=== PATIENT | male | born 1995 | race Caucasian/White ===

== ENCOUNTER 2017-04-10 13:45 | Emergency (ER) | payer OTHER ==
[~2017-04-10] VITALS: Ht 175.3 cm; Wt 74.5 kg
[2017-04-10 13:57] VITALS: TEMP 36.8; Ht 175.3 cm; Wt 74.5 kg
[2017-04-10] MEDS ORDERED: ACETAMINOPHEN 500 MG TAB PO STA (14:48)
[2017-04-10] MEDS ORDERED: SODIUM CHLORIDE 0.9% 1000ML 1,000 ML IV STA ×2 (14:48→16:24)
[2017-04-10] MEDS ORDERED: IBUPROFEN 200 MG TAB PO STA (14:48)
[2017-04-10] MEDS ORDERED: CYCLOBENZAPRINE HCL 5 MG TAB PO STA (14:48)
--- NOTE | 2017-04-10 14:48 | EMERGENCY ROOM VISIT NOTE ---
History Report prepared by Benny: Autumn Gastelum Under the Supervision of: Dr. Geoffrey Spain M.D. First contact with patient: 14:14 Chief Complaint: ABDOMINAL PAIN Stated Complaint: SHARP PAINS IN LEFT SIDE OF STOMACH History of Present Illness The patient is a 21 year old white male with no past medical history who presents to the ED with a cc of constant sharp left sided abdominal pain beginning 2 days ago. The patient states that he has been having sharp abdominal pain that is worse with movement and deep breathing. He notes that he went to urgent care last night and they did a urine test that was normal. Negative urinary symptoms, cough, fever, chills, nausea, vomiting, recent travel , recent antibiotics, recent trauma, leg swelling, no groin pain. The patient notes that his last bowel movement was yesterday and was normal. He reports that he was on Prednisone for his ear but has been off of it for 5 days. Source of History: patient Onset: 2 days ago Position: abdomen (left) Quality: sharp Timing: constant Modifying Factors (Worsening): breathing, movement Associated Symptoms: No fevers, No chills, No cough, No nausea, No vomiting , No urinary symptoms Note: Negative leg swelling, no groin pain. Review of Systems See HPI for pertinent positives and negatives. A total of ten systems were reviewed and were otherwise negative. Past Medical & Surgical Medical Problems: (1) No Known Active Medical Problems Family History No pertinent family history stated. Social History Smoking Status: Never Smoker Marital Status: single Housing Status: lives with roommate Occupation Status: [employer] student Current/Historical Medications Scheduled PRN Tramadol (Ultram), 50 MG PO Q8H PRN for Pain Allergies Coded Allergies: No Known Allergies (Unverified , 04/10/17) Physical Exam Vital Signs Date Time Temp Pulse Resp B/P (MAP) Pulse Ox O2 Delivery O2 Flow Rate FiO2 04/10/17 18:52 70 18 134/70 99 04/10/17 17:09 74 16 127/59 95 Room Air 04/10/17 15:57 73 16 128/60 100 Room Air 04/10/17 15:14 69 04/10/17 13:57 36.8 84 16 113/66 97 Room Air Physical Exam GENERAL: Awake, alert, well-appearing, NAD HENT: Normocephalic, atraumatic. EYES: Normal conjunctiva. Sclera non-icteric. NECK: Supple. No nuchal rigidity. FROM. RESPIRATORY: CTAB, no rhonchi, wheezing, crackles CARDIAC: RRR, no MRG ABDOMEN: Soft, Mild TTP to LUQ and left upper rib margin, no crepitus, BS+ MSK: No chest wall TTP, no LE edema, no CVA tenderness NEURO: GCS 15, CN 2-12 intact, moves all 4s on command SKIN: No rash or jaundice noted. Medical Decision & Procedures ER Provider Diagnostic Interpretation: X-ray: Per my interpretation, radiologist review. CHEST ONE VIEW PORTABLE FINDINGS: Lung volumes are normal. No pneumothorax or pleural effusion is present. Pulmonary vascularity is normal. Cardiomediastinal silhouette is normal. There is no consolidation to suggest pneumonia. There is no lucency under the hemidiaphragms to suggest pneumoperitoneum on this study. IMPRESSION: No acute cardiopulmonary findings. Electronically signed by: Naman Wilkerson M.D. 04/10/2017 3:01 PM Dictated Date/Time: 04/10/2017 3:00 PM IMPRESSION: 1. Mild to moderate splenomegaly with a 2.4 cm round hypodensity inferior to the spleen which corresponds to the finding shown on prior ultrasound. This finding is nonspecific although could reflect an abnormal splenule such as an infarcted/torsed splenule. A developing abscess or hematoma could appear similar. Close clinical follow-up is recommended. Follow-up CT in one month is recommended to ensure expected evolution. Findings discussed with Dr. Spain at time of dictation. 2. Small amount of pelvic fluid which measures slightly greater than water attenuation. Laboratory Results 04/10/17 15:26 Red Blood Count 4.34, Mean Corpuscular Volume 89.2, Mean Corpuscular Hemoglobin 31.8, Mean Corpuscular Hemoglobin Concent 35.7, Mean Platelet Volume 12.2, Neutrophils (%) (Auto) 73.0, Lymphocytes (%) (Auto) 13.2, Monocytes (%) (Auto) 11.2, Eosinophils (%) (Auto) 1.9, Basophils (%) (Auto) 0.3, Neutrophils # (Auto ) 8.15, Lymphocytes # (Auto) 1.48, Monocytes # (Auto) 1.25, Eosinophils # (Auto ) 0.21, Basophils # (Auto) 0.03 04/10/17 15:26 Test 04/10/17 15:26 04/10/17 15:52 White Blood Count 11.17 K/uL (4.8-10.8) Red Blood Count 4.34 M/uL (4.7-6.1) Hemoglobin 13.8 g/dL (14.0-18.0) Hematocrit 38.7 % (42-52) Mean Corpuscular Volume 89.2 fL (80-100) Mean Corpuscular Hemoglobin 31.8 pg (25-34) Mean Corpuscular Hemoglobin Concent 35.7 g/dl (32-36) Platelet Count 161 K/uL (130-400) Mean Platelet Volume 12.2 fL (7.4-10.4) Neutrophils (%) (Auto) 73.0 % Lymphocytes (%) (Auto) 13.2 % Monocytes (%) (Auto) 11.2 % Eosinophils (%) (Auto) 1.9 % Basophils (%) (Auto) 0.3 % Neutrophils # (Auto) 8.15 K/uL (1.4-6.5) Lymphocytes # (Auto) 1.48 K/uL (1.2-3.4) Monocytes # (Auto) 1.25 K/uL (0.11-0.59) Eosinophils # (Auto) 0.21 K/uL (0-0.5) Basophils # (Auto) 0.03 K/uL (0-0.2) RDW Standard Deviation 41.8 fL (36.4-46.3) RDW Coefficient of Variation 12.8 % (11.5-14.5) Immature Granulocyte % (Auto) 0.4 % Immature Granulocyte # (Auto) 0.05 K/uL (0.00-0.02) Anion Gap 6.0 mmol/L (3-11) Est Creatinine Clear Calc Drug Dose 108.2 ml/min Estimated GFR () 112.6 Estimated GFR (Non- 97.2 BUN/Creatinine Ratio 13.7 (10-20) Calcium Level 8.6 mg/dl (8.5-10.1) Total Bilirubin 0.8 mg/dl (0.2-1) Direct Bilirubin 0.2 mg/dl (0-0.2) Aspartate Amino Transf (AST/SGOT) 11 U/L (15-37) Alanine Aminotransferase (ALT/SGPT) 20 U/L (12-78) Alkaline Phosphatase 78 U/L (45-117) Total Protein 6.9 gm/dl (6.4-8.2) Albumin 4.0 gm/dl (3.4-5.0) Lipase 126 U/L (73-393) Urine Color YELLOW Urine Appearance CLEAR (CLEAR) Urine pH 8.0 (4.5-7.5) Urine Specific [place] 1.019 (1.000-1.030) Urine Protein NEG (NEG) Urine Glucose (UA) NEG (NEG) Urine Ketones NEG (NEG) Urine Occult Blood NEG (NEG) Urine Nitrite NEG (NEG) Urine Bilirubin NEG (NEG) Urine Urobilinogen NEG (NEG) Urine Leukocyte Esterase NEG (NEG) Laboratory results reviewed by me Medications Administered Medications (Trade) Dose Ordered Sig/Raul Route Start Time Stop Time Status Last Admin Dose Admin Sodium Chloride 1,000 ml @ 999 mls/hr Q1H1M STAT IV 04/10/17 14:48 04/10/17 15:48 DC 04/10/17 15:11 999 MLS/HR Sodium Chloride 1,000 ml @ 125 mls/hr Q8H STAT IV 04/10/17 16:24 04/11/17 00:23 DC 04/10/17 17:49 125 MLS/HR ECG Indication: abdominal pain Rate (beats per minute): 67 Rhythm: normal sinus Findings: no ectopy, other (normal intervals, no STS changes or T wave inversions) ED Course 1414: The patient was evaluated in room B2. A complete history and physical exam was performed. 1651: I reevaluated the patient. He feels good and will be getting a CT scan. Medical Decision The patient is a 21 year old white male with no past medical history who presents to the ED with a cc of constant sharp left sided abdominal pain beginning 2 days ago. Differential diagnosis: Etiologies such as renal colic, appendicitis, diverticulitis, mesenteric ischemia, aortic pathology, infections, inflammatory bowel disease, PUD, biliary pathology, UTI, as well as others were entertained. Patient was seen and evaluated at the bedside. Patient has no prior medical history. Denies any trauma. Patient denies any recent history of mono infectious symptoms. Denies any history of kidney stones. He does complain of some left-sided flank and lower rib pain. Patient is PRC negative less likely PE. Patient did have an EKG lab work and a normal ultrasound to further evaluate. EKG non-ischemic. Blood work unremarkable. LFTs lipase WNL. UA neg for blood or infection. Of note US did not cystic looking structure which was further evaluated w/ CT A/P. I spoke w/ the radiologist who stated not likely neoplastic. Possibly a splenule that infarcted. Could be hematoma or infection; however patient has had not recent trauma and no infectious symptoms, AFVSS and WBC WNL. I discussed that based on current literature infarcted splenules are trx'ed conservatively w/ pain control. No follow up needed for this in particular; however, because we cannot say w/ absolutely it is as such, he was given strict f/u, return, and d/c isntructions in addition to warning signs that would be best for him to return to the [facility] for further eval. Also told no contact sports for net 2 weeks and to follow up with his PCP and/or [facility]. Patient and family agreeable to POC and safely d/c'ed to home. Medication Reconcilliation Current Medication List: was personally reviewed by me Blood Pressure Screening Patient's blood pressure: Normal blood pressure Blood pressure disposition: Did not require urgent referral Impression Primary Impression: Left flank pain Scribe Attestation The scribe's documentation has been prepared under my direction and personally reviewed by me in its entirety. I confirm that the note above accurately reflects all work, treatment, procedures, and medical decision making performed by me. Departure Information Dispostion Home / Self-Care Prescriptions Tramadol (Ultram) 50 Mg Tab 50 MG PO Q8H Y for Pain, #12 TAB Prov: Geoffrey Spain M.D. 04/10/17 Referrals No Doctor, Assigned (PCP) Patient Instructions ED Flank Pain Uncertain Cause, My [facility] Additional Instructions Please return to the emergency department if you have worsening or recurrent symptoms not amenable to at-home treatment. Please call for a follow-up appointment with her primary care physician. Please take your medications as prescribed. If you have other concerns and/or complaints please feel free to also call your primary care physician's office or return the ED for further evaluation, management, and treatment. You may take 600 mg Ibuprofen every 6 hours as needed for pain with food for no more than 2 consecutive days. You may take tylenol 1000mg every 6 hours as needed for pain. You may take motrin and tylenol separately or at the same time. Take tramadol for breakthrough pain. There is no need to follow up with a repeat scan of the noted splenule; however, if you have worsening symptoms, please do return to your nearest EC for further management, testing, and treatment. You have been examined and treated today on an emergency basis only. This is not a substitute for, or an effort to provide, complete comprehensive medical care. It is impossible to recognize and treat all injuries or illnesses in a single emergency department visit. It is therefore important that you follow up closely with [facility]. Call as soon as possible for an appointment. Thank you for your time and consideration. I look forward to speaking with you again soon. Please don't hesitate to call us if you have any questions.
--- NOTE | 2017-04-10 15:02 | DIAGNOSTIC IMAGING REPORT ---
CHEST ONE VIEW PORTABLE CLINICAL HISTORY: Abdominal pain. COMPARISON STUDY: No previous studies for comparison. FINDINGS: Lung volumes are normal. No pneumothorax or pleural effusion is present. Pulmonary vascularity is normal. Cardiomediastinal silhouette is normal. There is no consolidation to suggest pneumonia. There is no lucency under the hemidiaphragms to suggest pneumoperitoneum on this study. IMPRESSION: No acute cardiopulmonary findings. Electronically signed by: Naman Wilkerson M.D. 04/10/2017 3:01 PM Dictated Date/Time: 04/10/2017 3:00 PM
[2017-04-10 15:37] LABS: BASO % 0.3 %; BASO ABS # 0.03 K/uL (0-0.2); COMPLETE YES; EOS % 1.9 %; HEMATOCRIT 38.7 % (42-52); IG% 0.4 %; LYMPH % 13.2 %; LYMPH ABS # 1.48 K/uL (1.2-3.4); MEAN CELL VOLUME 89.2 fL (80-100); MEAN CORPUSCULAR HEMOGLOBIN 31.8 pg (25-34); MEAN CORPUSCULAR HGB CONC 35.7 g/dl (32-36); MEAN PLATELET VOLUME 12.2 fL (7.4-10.4); MONO % 11.2 %; PLATELET COUNT 161 K/uL (130-400); RED BLOOD COUNT 4.34 M/uL (4.7-6.1); WHITE BLOOD COUNT 11.17 K/uL (4.8-10.8)
[2017-04-10 15:56] LABS: BUN/CREATININE RATIO 13.7 (10-20); CALCIUM 8.6 mg/dl (8.5-10.1); CREATININE 1.09 mg/dl (0.60-1.40); POTASSIUM 4.3 mmol/L (3.5-5.1)
[2017-04-10 16:10] LABS: URINE APPEARANCE CLEAR (CLEAR); URINE BILIRUBIN NEG (NEG); URINE COLOR YELLOW; URINE NITRITE NEG (NEG); URINE SPECIFIC GRAVITY 1.019 (1.000-1.030); UROBILINOGEN NEG (NEG); ZZUR CULT IF INDIC CLEAN CATCH NO
[2017-04-10 16:12] LABS: MANUAL MICROSCOPIC REQUIRED? NO; REVIEW REQ? NO
--- NOTE | 2017-04-10 16:46 | DIAGNOSTIC IMAGING REPORT ---
LEFT UPPER QUADRANT ULTRASOUND HISTORY: Left flank pain. COMPARISON: None. FINDINGS: The spleen is moderately enlarged, measuring 15.7 cm. There is trace perisplenic fluid. There is a 2.2 x 1.9 x 2.1 cm round hypoechoic perisplenic abnormality which contains no color flow. This is nonspecific. The left kidney is normal. There is no left hydronephrosis. IMPRESSION: 1. Moderate splenomegaly with trace perisplenic fluid. 2.2 cm round perisplenic abnormality is nonspecific and could reflect a mass, hematoma or portion of the bowel. A contrast-enhanced CT of the abdomen and pelvis is recommended for further evaluation. 2. No left hydronephrosis. Electronically signed by: Naman Wilkerson M.D. 04/10/2017 4:45 PM Dictated Date/Time: 04/10/2017 4:42 PM
[2017-04-10] MEDS ORDERED: OPTIRAY 320 IV PRN (17:00)
--- NOTE | 2017-04-10 18:01 | DIAGNOSTIC IMAGING REPORT ---
CT OF THE ABDOMEN AND PELVIS WITH CONTRAST CLINICAL HISTORY: Left flank pain. Abnormal ultrasound. COMPARISON STUDY: Left upper quadrant ultrasound performed earlier today. TECHNIQUE: Following IV administration of 93 mL of Optiray-320, axial images of the abdomen and pelvis were obtained from the lung bases to the proximal femurs. Images were reviewed in the axial, sagittal, and coronal planes. IV contrast was administered without complication. A dose lowering technique was utilized adhering to the principles of ALARA. CT DOSE: 306.09 mGy.cm FINDINGS: The liver, adrenal gland, kidneys and pancreas are normal. There is mild to moderate splenomegaly. Note is made of a 2.4 cm round heterogeneous hypodensity inferior to the spleen which corresponds to the finding shown on prior ultrasound. There is moderate adjacent infiltration and a small amount of fluid within the pelvis that measure slightly greater than water attenuation. There is no evidence for a bowel obstruction. There is no peripancreatic infiltration. No suspicious osseous lesions are present. IMPRESSION: 1. Mild to moderate splenomegaly with a 2.4 cm round hypodensity inferior to the spleen which corresponds to the finding shown on prior ultrasound. This finding is nonspecific although could reflect an abnormal splenule such as an infarcted/torsed splenule. A developing abscess or hematoma could appear similar. Close clinical follow-up is recommended. Follow-up CT in one month is recommended to ensure expected evolution. Findings discussed with Dr. Spain at time of dictation. 2. Small amount of pelvic fluid which measures slightly greater than water attenuation. Electronically signed by: Naman Wilkerson M.D. 04/10/2017 5:59 PM Dictated Date/Time: 04/10/2017 5:42 PM
[2017-04-10] MEDS ORDERED: TRAM-10 PO (18:20)
[2017-04-10 18:52] VITALS: BP 134/70; PULSE 70; O2SAT 99
== END 2017-04-10 18:56 | disposition home or self-care (01) ==
LOC: C.EDB 13:47
DX: R10.30 Lower abdominal pain, unspecified (principal)

== ENCOUNTER → 2017-05-12 | Outpatient (CLI) | payer OTHER ==
[~2017-05-12] MED LIST: OPTIRAY 320 IV PRN; TRAM-10 PO
--- NOTE | 2017-05-12 13:21 | DIAGNOSTIC IMAGING REPORT ---
ABD WITH IV AND ORAL CONT (CT) HISTORY: 21 years-old Male follow-up study to assess a 2.4 cm round hypodensity inferior to the spleen seen on comparison study 04/10/2017. COMPARISON: CT abdomen and pelvis 04/10/2017, abdominal ultrasound 04/10/2017 TECHNIQUE: Multiple axial CT images of the abdomen were obtained following the administration of IV and oral contrast. 94 mL Optiray 320 IV contrast was administered. A dose lowering technique was used consistent with the principals of ESTEBAN. FINDINGS: Lung bases are generally clear. There is no pneumoperitoneum identified. Imaged inferior cardiac chambers are unremarkable. The liver, gallbladder, pancreas and adrenal glands are unremarkable. No intrahepatic biliary ductal dilation. Mild splenic likely redemonstrated measuring up to 13 x 9 cm in greatest dimension which appears unchanged from comparison. There is an ill-defined low attenuating lesion inferior to the spleen which now measures 1.8 x 1.4 x 1.4 cm, previously measuring 2.6 x 2.3 x 2.6 cm on study dated 08/11/2016. Decreased amount of surrounding inflammatory stranding is also noted. The abdominal aorta is normal in course and caliber. There is no dissection or aneurysm. There is no bulky adenopathy identified. No bowel obstruction or focal wall kinking of the bowel identified. Soft tissues are unremarkable. The bones appear intact. No significant degenerative changes. IMPRESSION: 1. Decreased size of ill-defined low attenuating lesion inferior to the spleen, now measuring up to 1.8 cm with decreased amount of surrounding inflammation. These findings suggest benign a benign entity such as resolving hematoma or abscess. 2. Mild splenomegaly is unchanged measuring up to 13 cm. The above report was generated using voice recognition software. It may contain grammatical, syntax or spelling errors. Electronically signed by: John Feliz M.D. 05/12/2017 1:20 PM Dictated Date/Time: 05/12/2017 1:10 PM
== END | disposition home or self-care (01) ==
LOC: C.CTS 12:31
PROVIDERS: ATTEND Family Medicine
DX: Q89.09 Congenital malformations of spleen (principal); R16.1 Splenomegaly, not elsewhere classified

== ENCOUNTER → 2017-09-08 | Outpatient (CLI) | payer OTHER ==
--- NOTE | 2017-09-08 16:55 | DIAGNOSTIC IMAGING REPORT ---
ABDOMEN AND PELVIS CT WITH IV AND ORAL CONTRAST CT DOSE: 418.77 mGycm HISTORY: Follow-up study in a patient with splenomegaly SPLENOMEGALY TECHNIQUE: Multiaxial CT images of the abdomen and pelvis were performed following the use of intravenous and oral contrast. A dose lowering technique was utilized adhering to the principles of ALARA. COMPARISON STUDY: CT abdomen and pelvis 05/12/2017 and 04/10/2017. FINDINGS: The lung bases are generally clear. There is no pneumatosis or pneumoperitoneum identified. The imaged inferior cardiac chambers are unremarkable The liver, pancreas and adrenal glands are within normal limits. Gallbladder is mildly contracted. The spleen measures in the upper limits of normal at 12.4 x 9.3 cm, previously measuring 13.2 x 9.3 cm on study dated 05/12/2017. There is resolution of the previously noted ill-defined collection of the left upper abdomen inferior to the spleen which previously measured up to 1.8 cm. Now there is only a small 4 mm nodular density within this region on today's study, image 164 series 3. No drainable fluid collections identified. Kidneys, ureters and urinary bladder are within normal limits. Aorta is normal in course and caliber. Nonenlarged mesenteric lymph nodes are likely physiologic. No bulky adenopathy by CT size criteria. No bowel obstruction identified. Apparent mild wall thickening of the distal sigmoid colon is likely secondary to partial distention. Normal appendix and terminal ileum. Soft tissues are unremarkable. The bones appear intact. Bone island of the left acetabulum and right ischium noted. IMPRESSION: 1. No acute intra-abdominal or intrapelvic abnormality identified. 2. Mildly decreased size of the spleen, now measuring in the upper limits of normal at 12.4 cm. 3. Near complete resolution of the previously described lesion/collection of the left upper abdomen now with only a very subtle 4 mm nodular density seen within this region. No drainable fluid collections. 4. Normal appendix. Electronically signed by: John Feliz M.D. 09/08/2017 4:54 PM Dictated Date/Time: 09/08/2017 4:46 PM
== END | disposition home or self-care (01) ==
LOC: C.CTS 14:07
PROVIDERS: ATTEND Family Medicine
DX: R16.1 Splenomegaly, not elsewhere classified (principal)